=== PATIENT | male | born 1940 | race Caucasian/White ===

== ENCOUNTER → 2018-02-25 10:45 | Outpatient (CLI) | payer MEDICARE, SELFPAY ==
--- NOTE | 2018-02-25 | DI.CT.S_ITS ---
PROCEDURE: CT ABDOMEN PELVIS WO CON INDICATIONS: Asymptomatic microscopic hematuria TECHNIQUE: Noncontrast 5 mm thick sections acquired from the diaphragms to the symphysis. 5 mm coronal and sagittal reformats were then performed. For radiation dose reduction, the following was used: automated exposure control, adjustment of mA and/or kV according to patient size. COMPARISON: None. FINDINGS: Image quality: Excellent. ABDOMEN: Lung bases: No acute consolidation. Scattered subsegmental atelectasis and/or scarring. Heart size is normal. Solid organs: Liver is normal in size. Gallbladder negative. Some 5 mm calcification seen on image 22 series 2 are indeterminate in location. If there is suspicion of choledocholithiasis, MRCP could be performed. These could be calcifications within a non-specific periportal lymph node Pancreas is normal in contours. Spleen is normal in size. No adrenal nodules. Kidneys are normal in size, without hydronephrosis or nephrolithiasis. Peritoneum and bowel: Unenhanced bowel loops demonstrate normal wall thickness and caliber. No free fluid or air. Normal appendix. Colonic diverticulosis is seen without evidence of acute complication. Nodes and vessels: No retroperitoneal or mesenteric adenopathy by size criteria. Aorta and inferior vena cava are normal in caliber. Miscellaneous: Fat-containing umbilical hernia. PELVIS: Genitourinary: Bladder wall thickness is normal. Miscellaneous: No inguinal hernias or adenopathy. Bones: No suspicious bony lesions. Chronic right rib fracture, image 7. No vertebral body compression fractures. IMPRESSION: No urolithiasis. No evidence of urinary obstruction. Fat-containing umbilical hernia. No specific visualized etiology for hematuria. Dictated by: Samuel Basurto M.D. on 02/25/2018 at 15:12 Approved by: Samuel Basurto M.D. on 02/25/2018 at 15:23
== END ==
PROVIDERS: PCP Family Medicine; Visit Provider Family Medicine
DX: R31.21 Asymptomatic microscopic hematuria (principal); K42.9 Umbilical hernia without obstruction or gangrene
CPT/HCPCS: 74176; Q9967